=== PATIENT | female | born 1965 | race Caucasian/White ===

== ENCOUNTER 2016-06-08 13:19 | Emergency (ER) | payer OTHER ==
--- NOTE | 2016-06-08 21:10 | RAD ---
RIGHT HAND THREE VIEWS 06/08/16 There is a small chip fracture at the base of the middle phalanx of the ring finger on the volar asp ect of the PIP joint. There is no displacement. The remainder of the hand and wrist appear intact. N o other fractures were seen. 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 Some thickenin g of the distal ulnar shaft is seen at the margin of the film which could relate to old trauma. IMPRESSION: 1. Acute avulsion fracture at the base of the middle phalanx of the ring finger. 2. 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 POS: HOME
== END 2016-06-08 14:00 | disposition home or self-care (01) ==
LOC: BURERS 13:19
DX: S63.614A Unspecified sprain of right ring finger, initial encounter (principal); I10 Essential (primary) hypertension; M06.9 Rheumatoid arthritis, unspecified; F32.9 Major depressive disorder, single episode, unspecified; Z79.891 Long term (current) use of opiate analgesic; Z79.899 Other long term (current) drug therapy; W10.9XXA Fall (on) (from) unspecified stairs and steps, initial encounter
CPT/HCPCS: 29130; 99283

== ENCOUNTER 2017-01-19 14:03 | Emergency (ER) | payer OTHER ==
[2017-01-19] MEDS ORDERED: HYDROcodone/Acetaminophen 10/325 mg Tablet ONE (14:41)
[2017-01-19] MEDS ORDERED: Ibuprofen 800 MG TAB ONE (14:42)
--- NOTE | 2017-01-19 15:48 | RAD ---
LEFT WRIST 3 VIEWS: DATE: 01/19/17. FINDINGS: A comminuted fracture of the distal radius is present with extension of multiple lines into the radi ocarpal joint. There is mild displacement of some of the fragments. The fracture lines are general ly longitudinally oriented. The carpals themselves appear intact. IMPRESSION: Comminuted fracture of the distal radius with intraarticular extent and mild displacement. POS: HOME
--- NOTE | 2017-01-19 15:48 | RAD ---
LEFT ELBOW 3 VIEWS: DATE: 01/19/17. FINDINGS: No fracture or joint effusion was seen. All bones appeared intact. IMPRESSION: No acute finding. POS: HOME
== END 2017-01-19 15:30 | disposition home or self-care (01) ==
LOC: BURERS 14:03
DX: S52.502A Unspecified fracture of the lower end of left radius, initial encounter for closed fracture (principal); I10 Essential (primary) hypertension; F32.9 Major depressive disorder, single episode, unspecified; Z79.899 Other long term (current) drug therapy; W19.XXXA Unspecified fall, initial encounter
CPT/HCPCS: 29125

== ENCOUNTER 2018-01-31 21:27 | Emergency (ER) | payer OTHER ==
[2018-01-31] MEDS ORDERED: Lorazepam 2 MG/ML VIAL ONE (21:35)
[2018-01-31] MEDS ORDERED: Morphine 4 MG/ML VIAL ONE ×2 (21:35→22:10)
[2018-01-31] MEDS ORDERED: HYDROcodone/Acetaminophen 5/325 mg Tablet ONE (22:33)
--- NOTE | 2018-01-31 23:08 | RAD ---
TWO VIEWS OF THE RIGHT ANKLE: 01/31/18 INDICATION: Fall with pain. COMPARISON: None. FINDINGS: There are bimalleolar ankle fractures. The medial malleolar ankle fracture is transversely oriented w ith a distal fracture fragment displaced medially one cortex width. There is a transverse oriented f racture involving the lateral malleolus below the tibiotalar joint line that is not appreciably depre ssed but is distracted approximately 4 mm. No additional fracture is grossly evident. IMPRESSION: Mildly displaced bimalleolar ankle fracture. POS: [facility]
== END 2018-01-31 22:40 | disposition home or self-care (01) ==
LOC: BURERS 21:27
DX: S82.841A Displaced bimalleolar fracture of right lower leg, initial encounter for closed fracture (principal); I10 Essential (primary) hypertension; F32.9 Major depressive disorder, single episode, unspecified; F41.9 Anxiety disorder, unspecified; F17.210 Nicotine dependence, cigarettes, uncomplicated; Z79.899 Other long term (current) drug therapy; W01.0XXA Fall on same level from slipping, tripping and stumbling without subsequent striking against object, initial encounter
CPT/HCPCS: 27810; 96374; 96375; 96376; J2060; J2270

== ENCOUNTER 2019-03-12 13:01 | Emergency (ER) | payer OTHER | END 2019-03-12 13:34 | disposition home or self-care (01) | LOC: BURERS 13:01 | DX: H66.42 Suppurative otitis media, unspecified, left ear (principal); J01.80 Other acute sinusitis; B96.89 Other specified bacterial agents as the cause of diseases classified elsewhere; J02.9 Acute pharyngitis, unspecified; E03.9 Hypothyroidism, unspecified; I10 Essential (primary) hypertension; M06.9 Rheumatoid arthritis, unspecified; F17.210 Nicotine dependence, cigarettes, uncomplicated; Z79.899 Other long term (current) drug therapy | CPT/HCPCS: 99282 ==

== ENCOUNTER 2019-06-04 15:05 | Outpatient (CLI) | payer OTHER ==
--- NOTE | 2019-06-04 15:48 | RAD ---
Exam: XR Elbow Lt 4 View STANDARD HISTORY: Preoperative evaluation. COMPARISON: 01/19/2017 FINDINGS: Mild degenerative changes are seen at the elbow. No acute fracture or dislocation is identified. Ther e is elevation of the posterior fat pad suggesting a joint effusion. IMPRESSION: Evidence of a joint effusion which suggests the possibility of a fracture. However, a definite fractu re of the left elbow is not visualized. Follow-up views of the left elbow are recommended in 4-7 days after conservative management.
== END 2019-06-04 15:06 | disposition home or self-care (01) ==
LOC: BURLAB 15:05 → BUREKG 15:06
PROVIDERS: ATTEND Family Medicine
DX: Z01.818 Encounter for other preprocedural examination (principal); M25.522 Pain in left elbow; M25.422 Effusion, left elbow

== ENCOUNTER 2020-02-25 14:04 | Outpatient (CLI) | payer OTHER ==
[2020-02-25 14:40] LABS: #Basophils 0.1 thou/uL (0.0-0.2); #Eosinphils 0.2 thou/uL (0.0-0.7); #Lymphocytes 1.9 thou/uL (1.20-3.40); #Monocytes 0.5 thou/uL (0.11-0.59); #Neutrophils 3.4 thou/uL (1.40-6.50); %Basophils 1.4 % (0.0-1.0); %Eosinophils 2.8 % (0.0-10.0); %Lymphocytes 31.4 % (21.0-51.0); %Monocytes 7.7 % (0.0-10.0); %Neutrophils 56.8 % (42.0-75.0); Mean Corpuscular Hemoglobin 30.5 pg (27.0-31.0); Mean Corpuscular Volume 89.9 fL (78.0-98.0); Mean Platelet Volume 9.5 fL (7.4-10.4); Platelet Count 136 thou/uL (130-400); RBC Distribution Width 12.1 % (11.5-14.5); White Blood Cell (WBC) Count 5.9 thou/uL (4.8-10.8)
[2020-02-25 14:51] LABS: ALT (SGPT) 28 U/L (8-55); AST (SGOT) 28 U/L (5-34); Albumin 3.8 g/dL (3.5-5.0); Alkaline Phosphatase 64 U/L (40-110); Anion Gap 14 mmol/L (10-20); BUN (Urea Nitrogen) 6 mg/dL (9.8-20.1); Bilirubin, Total 0.5 mg/dL (0.2-1.2); Calc. Creatinine Clearance 0 mL/min (70-130); Calcium 8.9 mg/dL (7.8-10.44); Carbon Dioxide 26 mmol/L (22-29); Chloride 104 mmol/L (98-107); Estimated GFR-MDRD 69; Globulin 3.6 g/dL (2.4-3.5); Glucose 143 mg/dL (70-105); Potassium 3.6 mmol/L (3.5-5.1); Protein, Total 7.4 g/dL (6.0-8.3); Sodium 140 mmol/L (136-145)
[2020-02-26 14:50] LABS: SARS-CoV-2 MS2 Positive; SARS-CoV-2 N Gene Negative; SARS-CoV-2 S Gene Negative; SARS-CoV-2 by NAA Not Detected (NotDetected); SARS-CoV-2 orf1ab Negative
== END 2020-02-25 14:05 | disposition home or self-care (01) ==
LOC: BUREKG 14:04
PROVIDERS: ATTEND Family Medicine
DX: Z01.818 Encounter for other preprocedural examination (principal)
CPT/HCPCS: 36415; 80053; 85025; 87635; 93005; 93010; U0003

== ENCOUNTER 2022-04-17 07:25 | Emergency (ER) | payer OTHER, SELFPAY ==
[2022-04-17] MEDS ORDERED: Cyclobenzaprine 10 MG TAB ONE (07:59)
[2022-04-17] MEDS ORDERED: Ketorolac Tromethamine 30 MG/ML VIAL ONE (08:00)
== END 2022-04-17 08:13 | disposition home or self-care (01) ==
LOC: BURERS 07:25
DX: S39.012A Strain of muscle, fascia and tendon of lower back, initial encounter (principal); F17.210 Nicotine dependence, cigarettes, uncomplicated; E03.9 Hypothyroidism, unspecified; I10 Essential (primary) hypertension; Z79.899 Other long term (current) drug therapy; X50.9XXA Other and unspecified overexertion or strenuous movements or postures, initial encounter
CPT/HCPCS: 96372; 99283; J1885

== ENCOUNTER 2023-10-22 14:06 | Emergency (ER) | payer OTHER ==
[~2023-10-22 14:06] MED LIST: Iopamidol 370 76% 100 ML VIAL ONE
[2023-10-22 15:04] LABS: #Basophils 0.1 thou/uL (0.0-0.2); #Eosinphils 0.3 thou/uL (0.0-0.7); #Lymphocytes 2.2 thou/uL (1.20-3.40); #Monocytes 0.6 thou/uL (0.11-0.59); #Neutrophils 5.2 thou/uL (1.40-6.50); %Basophils 1.1 % (0.0-1.0); %Eosinophils 4.1 % (0.0-10.0); %Lymphocytes 26.3 % (21.0-51.0); %Monocytes 6.7 % (0.0-10.0); %Neutrophils 61.8 % (42.0-75.0); Hematocrit 36.5 % (36.0-47.0); Mean Corpuscular HGB CONC 32.9 g/dL (32.0-36.0); Mean Corpuscular Hemoglobin 28.5 pg (27.0-31.0); Mean Corpuscular Volume 86.7 fl (78.0-98.0); Mean Platelet Volume 5.4 fL (7.4-10.4); Platelet Count 545 10x3/uL (130-400); RBC Distribution Width 13.9 % (11.5-14.5); Red Blood Cell (RBC) Count 4.21 mill/uL (4.20-5.40); White Blood Cell (WBC) Count 8.5 10x3/uL (4.8-10.8)
[2023-10-22 15:12] LABS: Prothrombin Time 13.1 sec (12.0-14.7)
[2023-10-22 15:17] LABS: ALT (SGPT) 20 U/L (8-55); AST (SGOT) 20 U/L (5-34); Albumin 3.1 g/dL (3.5-5.0); Alkaline Phosphatase 77 U/L (40-110); Anion Gap 12 mmol/L (10-20); BUN (Urea Nitrogen) 8 mg/dL (9.8-20.1); Bilirubin, Total 0.3 mg/dL (0.2-1.2); Calc. Creatinine Clearance 0 mL/min (70-130); Calcium 9.1 mg/dL (7.8-10.44); Carbon Dioxide 28 mmol/L (22-29); Chloride 103 mmol/L (98-107); Estimated GFR 92; Globulin 4.5 g/dL (2.4-3.5); Glucose 95 mg/dL (70-105); Potassium 3.9 mmol/L (3.5-5.1); Protein, Total 7.6 g/dL (6.0-8.3); Sodium 139 mmol/L (136-145)
[2023-10-22] MEDS ORDERED: Morphine 4 MG/ML VIAL ONE (15:37)
== END 2023-10-22 16:55 | disposition home or self-care (01) ==
LOC: BURERS 14:06
DX: S36.029A Unspecified contusion of spleen, initial encounter (principal); I10 Essential (primary) hypertension; E11.9 Type 2 diabetes mellitus without complications; F17.210 Nicotine dependence, cigarettes, uncomplicated; V49.60XA Unspecified car occupant injured in collision with unspecified motor vehicles in traffic accident, initial encounter
CPT/HCPCS: 70450; 74177; 80053; 85025; 85610; 96374; J2270; Q9967

== ENCOUNTER 2023-12-06 13:59 | Emergency (ER) | payer OTHER ==
[2023-12-06] MEDS ORDERED: methylPREDNISolone Sod Succ/PF 125 MG/2 ML VIAL ONE (14:40)
== END 2023-12-06 15:06 | disposition home or self-care (01) ==
LOC: BURERS 13:59
DX: M13.89 Other specified arthritis, multiple sites (principal); I10 Essential (primary) hypertension; E11.9 Type 2 diabetes mellitus without complications; F17.210 Nicotine dependence, cigarettes, uncomplicated
CPT/HCPCS: 96372; 99283; J2919